=== PATIENT | male | born 1950 | race African-American/Black ===

== ENCOUNTER 2018-11-08 22:29 | Emergency (ER) | payer SELFPAY ==
[~2018-11-08] VITALS: Ht 180.3 cm; Wt 63.6 kg
[2018-11-08 23:53] LABS: URINE BILIRUBIN - DIPSTICK NEGATIVE (NEGATIVE); URINE BLOOD DIPSTICK NEGATIVE (NEGATIVE); URINE COLOR YELLOW; URINE GLUCOSE - DIPSTICK NEGATIVE (NEGATIVE); URINE KETONE NEGATIVE (NEGATIVE); URINE LEUK ESTERASE NEGATIVE (NEGATIVE); URINE NITRITE - DIPSTICK NEGATIVE (Negative); URINE PH 6.5 (4.5-8.0); URINE PROTEIN - DIPSTICK NEGATIVE (NEG-TRACE); URINE UROBILINOGEN - DIPSTICK 0.2 E.U./dL (0.2)
[2018-11-09] MEDS ORDERED: TAMSULOSIN0.4 MG PO (00:27)
[2018-11-09 00:40] VITALS: BP 127/71
== END 2018-11-09 00:40 | disposition home or self-care (01) | DRG 696 ==
LOC: ED 22:29
PROVIDERS: Family Medicine
PROC: 0T9B70Z Drainage of Bladder with Drainage Device, Via Natural or Artificial Opening (ICD-10-PCS; principal; 2018-11-08)
DX: R33.9 Retention of urine, unspecified (principal)

== ENCOUNTER 2018-11-13 21:18 | Emergency (ER) | payer SELFPAY ==
[~2018-11-13] VITALS: Ht 180.3 cm; Wt 77.0 kg
[~2018-11-13 21:18] MED LIST: TAMSULOSIN0.4 MG PO
[2018-11-13 22:49] LABS: URINE BILIRUBIN - DIPSTICK NEGATIVE (NEGATIVE); URINE BLOOD DIPSTICK NEGATIVE (NEGATIVE); URINE COLOR YELLOW; URINE GLUCOSE - DIPSTICK NEGATIVE (NEGATIVE); URINE KETONE TRACE mg/dL (NEGATIVE); URINE LEUK ESTERASE NEGATIVE (NEGATIVE); URINE NITRITE - DIPSTICK NEGATIVE (Negative); URINE PH 6.5 (4.5-8.0); URINE PROTEIN - DIPSTICK NEGATIVE (NEG-TRACE); URINE SPECIFIC GRAVITY 1.025; URINE UROBILINOGEN - DIPSTICK 0.2 E.U./dL (0.2)
[2018-11-14 00:48] VITALS: BP 140/65
== END 2018-11-14 00:48 | disposition home or self-care (01) | DRG 696 ==
LOC: ED 21:18
PROVIDERS: Emergency Medicine
DX: R35.0 Frequency of micturition (principal)

== ENCOUNTER 2020-01-20 08:26 | Emergency (ER) | payer BC ==
[~2020-01-20] VITALS: Ht 180.3 cm; Wt 86.0 kg
[2020-01-20 10:22] LABS: URINE BILIRUBIN - DIPSTICK NEGATIVE (NEGATIVE); URINE BLOOD DIPSTICK TRACE-INTACT (NEGATIVE); URINE COLOR YELLOW; URINE GLUCOSE - DIPSTICK NEGATIVE (NEGATIVE); URINE KETONE NEGATIVE (NEGATIVE); URINE LEUK ESTERASE NEGATIVE (NEGATIVE); URINE NITRITE - DIPSTICK NEGATIVE (Negative); URINE PROTEIN - DIPSTICK NEGATIVE (NEG-TRACE); URINE UROBILINOGEN - DIPSTICK 0.2 E.U./dL (0.2)
[2020-01-20] MEDS ORDERED: MOTRIN400 MG PO (10:55)
[2020-01-20] MEDS ORDERED: VOLTAREN1%GEL TOP (10:55)
[2020-01-20] MEDS ORDERED: TAMSULOSIN0.4 MG PO (10:58)
[2020-01-20 11:01] VITALS: BP 157/93
[2020-01-21] MEDS ORDERED: TAMSULOSIN0.4 MG PO (13:10)
[2020-01-21] MEDS ORDERED: MOTRIN400 MG PO (13:10)
[2020-01-21] MEDS ORDERED: VOLTAREN1%GEL TOP (13:10)
== END 2020-01-20 11:30 | disposition home or self-care (01) | DRG 696 ==
LOC: ED 08:26
PROVIDERS: Family Medicine
DX: R33.9 Retention of urine, unspecified (principal); M17.12 Unilateral primary osteoarthritis, left knee; H53.8 Other visual disturbances

== ENCOUNTER 2020-01-27 09:16 | Emergency (ER) | payer BC ==
[~2020-01-27] VITALS: Ht 180.3 cm; Wt 70.0 kg
[~2020-01-27 09:16] MED LIST changes: +MOTRIN400 MG PO; +VOLTAREN1%GEL TOP
[2020-01-27] MEDS ORDERED: CYCLOBENZAPR5 MG PO (09:46)
[2020-01-27 10:50] VITALS: BP 156/93
== END 2020-01-27 10:50 | disposition home or self-care (01) | DRG 552 ==
LOC: ED 09:16
DX: M54.5 Low back pain (principal); M25.562 Pain in left knee; M17.12 Unilateral primary osteoarthritis, left knee; M54.30 Sciatica, unspecified side

== ENCOUNTER 2021-05-03 17:05 | Emergency (ER) | payer BC ==
[~2021-05-03] VITALS: Ht 180.3 cm; Wt 60.0 kg
[~2021-05-03 17:05] MED LIST changes: +CYCLOBENZAPR5 MG PO
[2021-05-03 18:42] LABS: URINE BILIRUBIN - DIPSTICK NEGATIVE (NEGATIVE); URINE BLOOD DIPSTICK MODERATE (NEGATIVE); URINE COLOR YELLOW; URINE GLUCOSE - DIPSTICK NEGATIVE (NEGATIVE); URINE KETONE NEGATIVE (NEGATIVE); URINE PH 6.5 (4.5-8.0); URINE PROTEIN - DIPSTICK 30 mg/dL (NEG-TRACE); URINE SPECIFIC GRAVITY 1.025; URINE UROBILINOGEN - DIPSTICK 0.2 E.U./dL (0.2)
[2021-05-03 18:44] LABS: URINE LEUK ESTERASE LARGE (NEGATIVE); URINE NITRITE - DIPSTICK POSITIVE (Negative)
[2021-05-03 18:49] LABS: URINE BACTERIA RARE hpf; URINE WBC 50-100 WBC/hpf (0-5)
[2021-05-03] MEDS ORDERED: KEFLEX500 MG PO (19:18)
[2021-05-03 19:42] VITALS: BP 138/83
[2021-05-03] MEDS ORDERED: TRAMADOL HCL50 MG PO (22:11)
[2021-05-09] MEDS ORDERED: OMNI-PAC300 MG PO (14:49)
== END 2021-05-03 20:08 | disposition home or self-care (01) | DRG 999 ==
LOC: ED 17:05
PROC: 0T9B70Z Drainage of Bladder with Drainage Device, Via Natural or Artificial Opening (ICD-10-PCS; principal; 2021-05-03)
DX: R33.9 Retention of urine, unspecified (principal); T83.511A Infection and inflammatory reaction due to indwelling urethral catheter, initial encounter; N39.0 Urinary tract infection, site not specified; T83.84XA Pain due to genitourinary prosthetic devices, implants and grafts, initial encounter; Y84.6 Urinary catheterization as the cause of abnormal reaction of the patient, or of later complication, without mention of misadventure at the time of the procedure

== ENCOUNTER 2021-05-03 21:43 | Emergency (ER) | payer BC ==
[~2021-05-03] VITALS: Ht 180.3 cm; Wt 60.0 kg
[~2021-05-03 21:43] MED LIST changes: +KEFLEX500 MG PO
[2021-05-03] MEDS ORDERED: TRAMADOL HCL50 MG PO (22:11)
[2021-05-03 22:20] VITALS: BP 140/96
[2021-05-09] MEDS ORDERED: OMNI-PAC300 MG PO (14:49)
== END 2021-05-03 23:22 | disposition home or self-care (01) | DRG 700 ==
LOC: ED 21:43
DX: T83.84XA Pain due to genitourinary prosthetic devices, implants and grafts, initial encounter (principal); R33.9 Retention of urine, unspecified; Y84.6 Urinary catheterization as the cause of abnormal reaction of the patient, or of later complication, without mention of misadventure at the time of the procedure

== ENCOUNTER 2021-05-09 12:24 | Emergency (ER) | payer BC ==
[~2021-05-09] VITALS: Ht 180.3 cm; Wt 68.0 kg
[~2021-05-09 12:24] MED LIST changes: +TRAMADOL HCL50 MG PO
[2021-05-09 13:54] LABS: URINE BILIRUBIN - DIPSTICK NEGATIVE (NEGATIVE); URINE BLOOD DIPSTICK LARGE (NEGATIVE); URINE COLOR YELLOW; URINE GLUCOSE - DIPSTICK NEGATIVE (NEGATIVE); URINE KETONE NEGATIVE (NEGATIVE); URINE LEUK ESTERASE MODERATE (NEGATIVE); URINE NITRITE - DIPSTICK NEGATIVE (Negative); URINE PH 6.5 (4.5-8.0); URINE PROTEIN - DIPSTICK 30 mg/dL (NEG-TRACE); URINE UROBILINOGEN - DIPSTICK 0.2 E.U./dL (0.2)
[2021-05-09 14:01] LABS: URINE BACTERIA MANY hpf; URINE RBC 50-100 RBC/hpf (0-5); URINE WBC 50-100 WBC/hpf (0-5)
[2021-05-09] MEDS ORDERED: OMNI-PAC300 MG PO ×3 (14:49→18:15)
[2021-05-09] MEDS ORDERED: TAMSULOSIN0.4 MG PO ×3 (17:14→18:15)
[2021-05-09] MEDS ORDERED: MOTRIN400 MG/TAB PO ×3 (17:15→18:15)
[2021-05-09] MEDS ORDERED: TRAMADOL HYDROC50 M1 PO (17:49)
[2021-05-09 18:27] VITALS: BP 143/81
== END 2021-05-09 18:28 | disposition home or self-care (01) | DRG 700 ==
LOC: ED 12:24
PROVIDERS: Family Medicine
PROC: 0T2BX0Z Change Drainage Device in Bladder, External Approach (ICD-10-PCS; principal; 2021-05-09)
DX: T83.511A Infection and inflammatory reaction due to indwelling urethral catheter, initial encounter (principal); N39.0 Urinary tract infection, site not specified; B96.89 Other specified bacterial agents as the cause of diseases classified elsewhere; Y84.6 Urinary catheterization as the cause of abnormal reaction of the patient, or of later complication, without mention of misadventure at the time of the procedure